=== PATIENT | male | born 1950 | race Caucasian/White ===

== ENCOUNTER → 2016-07-26 | Outpatient (CLI) | payer OTHER ==
[~2016-07-26] MED LIST: ASPI81TA28 PO; CLOP1TAB15 PO; METO25TA56 PO; MULTTAB45 PO; NITR0.4S UT; ROSU20TA PO
[2016-07-26 12:28] LABS: BASO % 0.5 %; BASO ABS # 0.04 K/uL (0-0.2); COMPLETE YES; EOS % 1.6 %; HEMATOCRIT 41.5 % (42-52); IG% 0.4 %; LYMPH % 35.6 %; LYMPH ABS # 2.67 K/uL (1.2-3.4); MEAN CELL VOLUME 85.7 fL (80-100); MEAN CORPUSCULAR HGB CONC 34.9 g/dl (32-36); MEAN PLATELET VOLUME 10.2 fL (7.4-10.4); MONO % 9.2 %; NEUT % 52.7 %; PLATELET COUNT 262 K/uL (130-400); RED BLOOD COUNT 4.84 M/uL (4.7-6.1); WHITE BLOOD COUNT 7.51 K/uL (4.8-10.8)
[2016-07-26 12:48] LABS: PROTHROMBIN TIME (PATIENT) 10.5 SECONDS (9.0-12.0)
[2016-07-26 12:53] LABS: BLOOD UREA NITROGEN 11 mg/dl (7-18); BUN/CREATININE RATIO 10.2 (10-20); CALCIUM 8.9 mg/dl (8.5-10.1); CARBON DIOXIDE 26 mmol/L (21-32); CHLORIDE 110 mmol/L (98-107); GLUCOSE 90 mg/dl (70-99); POTASSIUM 3.9 mmol/L (3.5-5.1); SODIUM 144 mmol/L (136-145)
== END | disposition home or self-care (01) ==
LOC: C.LABPBG 10:44
PROVIDERS: ATTEND Internal Medicine Cardiovascular Disease
DX: R06.02 Shortness of breath (principal); R07.9 Chest pain, unspecified

== ENCOUNTER → 2016-07-29 | Outpatient (CLI) | payer OTHER ==
--- NOTE | 2016-07-29 15:42 | DIAGNOSTIC IMAGING REPORT ---
CHEST 2 VIEWS ROUTINE CLINICAL HISTORY: CHEST PAIN dyspnea COMPARISON STUDY: No previous studies for comparison. FINDINGS: The bones soft tissues and hemidiaphragms are normal. The cardiomediastinal silhouette is normal. The lungs are clear. The pulmonary vasculature is normal. IMPRESSION: Negative chest. Electronically signed by: Ant Akers M.D. 07/29/2016 3:40 PM Dictated Date/Time: 07/29/2016 3:39 PM
== END | disposition home or self-care (01) ==
LOC: C.RADBC 15:14
PROVIDERS: ATTEND Internal Medicine Cardiovascular Disease
DX: R06.02 Shortness of breath (principal); R07.9 Chest pain, unspecified

== ENCOUNTER → 2017-01-09 | Outpatient (CLI) | payer OTHER ==
[2017-01-09 12:50] LABS: HEMATOCRIT 46.3 % (42-52); MEAN CORPUSCULAR HEMOGLOBIN 29.2 pg (25-34); MEAN CORPUSCULAR HGB CONC 32.8 g/dl (32-36); MEAN PLATELET VOLUME 10.8 fL (7.4-10.4); PLATELET COUNT 243 K/uL (130-400); WHITE BLOOD COUNT 7.94 K/uL (4.8-10.8)
[2017-01-09 13:22] LABS: ESTIMATED AVERAGE GLUCOSE 126 mg/dl; HA1C FLAG Normal (Normal)
[2017-01-09 13:32] LABS: ALT/SGPT 40 U/L (12-78); AST/SGOT 30 U/L (15-37); BLOOD UREA NITROGEN 15 mg/dl (7-18); BUN/CREATININE RATIO 13.4 (10-20); CALCIUM 9.1 mg/dl (8.5-10.1); CARBON DIOXIDE 27 mmol/L (21-32); CHLORIDE 111 mmol/L (98-107); CHOLESTEROL 141 mg/dl (0-200); GLUCOSE 107 mg/dl (70-99); POTASSIUM 4.2 mmol/L (3.5-5.1); SODIUM 143 mmol/L (136-145)
[2017-01-09 13:37] LABS: ALB/GLOB RATIO 1.1 (0.9-2); ALKALINE PHOSPHATASE 74 U/L (45-117); CHOLESTEROL/HDL RATIO 3.6; HDL CHOLESTEROL 39 mg/dl; LDL CHOLESTEROL CALCULATED 66 mg/dl; TRIGLYCERIDES 179 mg/dl (0-150); VERY LOW DENSITY LIPOPROT CALC 36 mg/dl
== END | disposition home or self-care (01) ==
LOC: C.LABPBG 08:03
PROVIDERS: ATTEND Family Medicine
DX: I10 Essential (primary) hypertension (principal); I25.10 Atherosclerotic heart disease of native coronary artery without angina pectoris; E78.5 Hyperlipidemia, unspecified; R73.03 Prediabetes

== ENCOUNTER → 2017-03-17 | Outpatient (CLI) | payer OTHER ==
[2017-03-17 13:01] LABS: ALT/SGPT 32 U/L (12-78); AST/SGOT 18 U/L (15-37); BLOOD UREA NITROGEN 14 mg/dl (7-18); BUN/CREATININE RATIO 13.4 (10-20); CALCIUM 8.8 mg/dl (8.5-10.1); CARBON DIOXIDE 27 mmol/L (21-32); CHLORIDE 111 mmol/L (98-107); CREATININE 1.08 mg/dl (0.60-1.40); GLUCOSE,FASTING 117 mg/dl (70-99); POTASSIUM 4.2 mmol/L (3.5-5.1); SODIUM 144 mmol/L (136-145)
[2017-03-17 13:05] LABS: ALB/GLOB RATIO 1.1 (0.9-2); ALKALINE PHOSPHATASE 85 U/L (45-117); CHOLESTEROL 165 mg/dl (0-200); CHOLESTEROL/HDL RATIO 3.8; HDL CHOLESTEROL 44 mg/dl; LDL CHOLESTEROL CALCULATED 83 mg/dl; TRIGLYCERIDES 189 mg/dl (0-150); VERY LOW DENSITY LIPOPROT CALC 38 mg/dl
== END | disposition home or self-care (01) ==
LOC: C.LABPBG 07:56
PROVIDERS: ATTEND Internal Medicine Cardiovascular Disease
DX: I25.119 Atherosclerotic heart disease of native coronary artery with unspecified angina pectoris (principal); E78.5 Hyperlipidemia, unspecified; I11.9 Hypertensive heart disease without heart failure

== ENCOUNTER → 2017-04-14 | Day surgery (SDC) | payer OTHER ==
[2017-04-11 08:08] VITALS: Ht 152.4 cm; Wt 80.5 kg
[~2017-04-14] VITALS: Ht 152.4 cm; Wt 80.5 kg
[~2017-04-14] MED LIST changes: +500ML BSSPLUS 0.5ML EPI1:1000 IRRIG ONE; +ACETAMINOPHEN 325 MG TAB PO PRN; +ATROPINE SULFATE 0.1 MG/ML 5ML SYR IV PRN; +ATROPINE SULFATE 1% OP SOLN 2 ML BTL ONE; +BSS FLUSH ONE; +BUPIVACAINE HCL 0.75% 10 ML AMP/VIAL ONE; +CEFAZOLIN SOD 1 GM VIAL ONE; +DEXAMETHASONE SOD INJ 4 MG/ML VIAL ONE; +EpHEDrine SULFATE INJ 50 MG/ML AMP IV PRN; +EpINEphrine INJ 1MG/ML AMP 1 MG/ML AMP ONE; +FENTANYL CITRATE INJ 50 MCG/1 ML 2 ML VIAL ONE; +HYALURONIDASE HUMAN 150 UNIT/ML INJ ONE; +INDOCYANINE GREEN 25 MG/10 ML ONE; +LACTATED RINGER'S 1000ML 500 ML IV SCH; +LIDOCAINE HCL 2% 2 ML VIAL (20MG/ML) ONE; +LOSA1TAB PO; +MIDAZOLAM HCL 1 MG/ML 2ML VIAL ONE; +NEOMYC/POLYMYX/BACITR/HC OP OI 3.5 GM TUBE OPL ONE; +OCUCOAT 1 ML SOLN IO ONE; +ONDANSETRON INJ 2 MG/ML 2 ML VIAL ONE; +POVIDONE-IODINE OP SOLN (SURGERY CNTR CHARGING ONLY) ONE; +PROPARACAINE 0.5% OP SOLN PER DROP CHARGE OPL SCH; +PROPOFOL IV EMULSION 10 MG/ML 20 ML VIAL IV ONE; +TIMOLOL MALEATE 0.5% OP SOLN PER DROP CHARGE OPL ONE; +TRIAMCINOLONE ACETONIDE OPHTH 40 MG/ML VIAL STERILE IO ONE; +VANCOMYCIN HCL 1000MG/20ML VIAL ONE
--- NOTE | 2017-04-14 07:55 | History and Physical: Surg Cnt ---
History & Physical Date Apr 14, 2017. Chief Complaint macular hole left eye History of Present Illness The patient is a 67 year old male with complaints of Past Medical/Surgical History Medical Problems: (1) Kidney stone Surgical Problems: (1) H/O heart artery stent Additional History Hepatic Disease: No Endocrine Disorder: No Kidney Disease: No Hypertension: Yes Heart Disease: Yes Bleeding Tendencies: Yes Infectious Diseases: No Allergies Coded Allergies: No Known Drug Allergy (Verified Allergy, Unknown, NKDA, 04/14/17) Home Medications Scheduled Aspirin (Aspirin Ec), 81 MG PO QAM Clopidogrel (Plavix), 75 MG PO QAM Losartan Potassium (Cozaar), 25 MG PO QAM Metoprolol Tartrate (Lopressor) (Lopressor), 0.05 TAB PO QAM Multiple Vitamin (Multiple Vitamin), 1 TAB PO QAM Nitroglycerin (Nitrostat), 0.4 MG UT PRN Rosuvastatin Calcium (Crestor), 1 TAB PO QAM Physical Examination Skin: warm/dry Head: normocephalic Respiratory/Chest: lungs clear Cardiovascular: regular rate, rhythm Plan of Treatment vitrectomy left eye
[2017-04-14] MEDS: PHENYLEPHRINE HCL 2.5% OP SOLN PER DROP CHARGE OPL SCH ×2 (08:25→08:30)
[2017-04-14] MEDS: TROPICAMIDE 1% OP SOLN PER DROP CHARGE OPL SCH ×2 (08:25→08:30)
--- NOTE | 2017-04-14 09:25 | [facility] Operative Report ---
Operative Report Date of Service Apr 14, 2017. Operative Report PREOPERATIVE DIAGNOSIS: Macular hole, left eye. ICD10 CODE: H35.342 POSTOPERATIVE DIAGNOSIS: same. PROCEDURE: 1. Pars plana vitrectomy, 23 gauge. 2. Membrane peeling of the internal limiting membrane. 3. Fluid-air exchange. 4. Air-gas exchange w/ SF6 20 %. All to the left eye. CPT CODE: 56063 SURGEON: Steven Altamirano D.O. COMPLICATIONS: None. ESTIMATED BLOOD LOSS: None. SPECIMENS: None. ANESTHESIA: Retrobulbar block and MAC. INDICATIONS FOR PROCEDURE: The patient has a macular hole that is visually significant. Vitrectomy surgery is indicated to decrease risk of vision loss and potentially improve vision. CONSENT: The risks, benefits and alternatives were discussed with the patient including but not limited to decreased visual acuity, failure to achieve desired results, loss of the eye, infection, pain, glaucoma, lens changes, retinal tears, retinal detachment, the need for more procedures, drooping of the eyelid, blindness, and double vision. The patient is aware of risks and consents to the surgery. Consent is signed and on the chart. OPERATION AND FINDINGS: The patient was brought to the operating room where the patient was identified by name, date, and medical record number. The surgical site was confirmed with the informed written consent. The patient was sedated by the anesthesiology team after which a 50:50 mixture of 2% lidocaine and 0.75% bupivacaine with hyaluronidase was administered in a standard retrobulbar fashion. A total of 4 ml was administered without difficulty. The patient was then prepped and draped in the usual sterile manner for retinal surgery. A wire lid speculum was placed and an Miguelito 23-gauge trocar cannula system was employed. The inferior temporal trocar cannula was first placed in an angled fashion 3.75mm posterior to the surgical limbus and the infusion cannula was inserted into this cannula after which the intravitreal position was verified prior to turning the infusion on. Two more trocar cannulas were then inserted in an angled fashion, one in the superior temporal, and one in the superior nasal quadrant both 3.75mm posterior to the surgical limbus. A light pipe and vitrector were then introduced into the eye and the BIOM wide angle viewing system was brought into place. Standard core vitrectomy was performed and the vitreous was insured to be totally detached from the posterior pole with the aid of the vitrector. Next 0.05ml of indocyanine green was placed over the macular surface to stain the internal limiting membrane. This was washed from the eye after 10 seconds. At this point a flat contact lens was placed on the surface of the eye and a flex scraper and ILM forceps were then used to gently peel the internal limiting membrane surrounding the macular hole without difficulty. At this point scleral depression was performed for 360 degrees and no retinal tears or detachments were noted. A soft tip cannula was used to perform a fluid- air exchange. Next, SF6 20% was injected in through the infusion cannula for a complete gas fill of the eye. The trocar cannulas were then removed and found to be air tight. The intraocular pressure was found to be within normal limits by palpation and subconjunctival injections of Kefzol and dexamethasone were administered inferiorly and superiorly. The wire lid speculum was removed. Maxitrol and timolol were applied to the surface of the eye. A light patch and shield were taped over the surface of the eye and the patient left the Operating Room in stable condition having tolerated the procedure well. DISPOSITION: A gas bracelet was placed on the patients wrist. The patient was instructed to maintain a face down position overnight. The patient is to call immediately if there are any problems overnight. I attest to the content of the Intraoperative Record and any orders documented therein. Any exceptions are noted below.
--- NOTE | 2017-04-14 09:27 | Discharge Instructions-SurgCtr ---
Discharge Instructions Date of Service Apr 14, 2017. Visit Reason for Visit: Left Eye Macular Hole Discharge Discharge Diagnosis / Problem: same Discharge Goals Goal(s): Improve function Activity Recommendations Activity Limitations: per Instructions/Follow-up section Anesthesia . Post Anesthesia Instructions: If you have had General Anesthesia or IV Sedation: * Do not drive today. * Resume driving when surgeon permits. * Do not make important decisions or sign legal documents today. * Call surgeon for: 1. Temperature elevations greater than 101 degrees F. 2. Uncontrollable pain. 3. Excessive bleeding. 4. Persistent nausea and vomiting. 5. Medication intolerance (nausea, vomiting or rash). * For nausea and vomiting use only clear liquids such as: tea, soda, bouillon until nausea subsides, then gradually increase diet as tolerated. * If you have any concerns or questions, call your surgeon's office. If physician is unavailable and it is an emergency, call 911 or go to the nearest emergency room. . Instructions / Follow-Up Instructions / Follow-Up * May take Tylenol if needed for discomfort. * Do NOT lay flat on back and position head as follows: face foward/chin down as much as possible. Sleep on right side. * Do NOT remove green bracelet until instructed to do so by your surgeon and follow these precautions: * No air travel * No travel above 2500 feet * No nitrous oxide (N2O). * Do NOT remove eye shield. * NO straining, heavy lifting (>15 pounds) or bending below waist. * Avoid getting water or soap directly into operative eye. * Do NOT rub eye. If you experience increasing eye pain not relieved by medication, please contact us immediately at [phone]. If you are unable to reach someone at the above number, call [phone] and ask to speak with the EYE DOCTOR PICKER TENDER HELPER. Inform them that you are a Dr. Altamirano patient who had recent surgery. Diet Recommendations Home Diet: resume previous diet Procedures Procedures Performed: Left Eye 23 Gauge Vitrectomy, Membrane Peeling, Installation of SF6 Gas Pending Studies Studies pending at discharge: no Medical Emergencies . Who to Call and When: Medical Emergencies: If at any time you feel your situation is an emergency, please call 911 immediately. . Non-Emergent Contact Non-Emergency issues call your: Clinical Services Assistant . . "Provider Documentation" section prepared by Steven Altamirano. .
--- NOTE | 2017-04-14 10:05 | Anesthesia Progress Nt - [facility] ---
Anesthesia Post Op Note Date & Time Apr 14, 2017 at 10:05 Vital Signs Pain Intensity: 0 Vital Signs Past 12 Hours Date Time Temp Pulse Resp B/P (MAP) Pulse Ox O2 Delivery O2 Flow Rate FiO2 04/14/17 09:45 36.7 67 16 109/76 (87) 94 Room Air 04/14/17 06:55 36.8 67 18 129/87 (101) 93 Room Air Notes Mental Status: alert / awake / arousable, participated in evaluation Pt Amnestic to Procedure: Yes Nausea / Vomiting: adequately controlled Pain: adequately controlled Airway Patency, RR, SpO2: stable & adequate BP & HR: stable & adequate Hydration State: stable & adequate Anesthetic Complications: no major complications apparent
[2017-04-14 10:07] VITALS: BP 111/75; PULSE 57; TEMP 36.6; O2SAT 95
== END | disposition home or self-care (01) ==
LOC: X.SURG 06:45
PROVIDERS: ATTEND Ophthalmology
DX: H35.342 Macular cyst, hole, or pseudohole, left eye (principal); I10 Essential (primary) hypertension; I25.10 Atherosclerotic heart disease of native coronary artery without angina pectoris

== ENCOUNTER → 2017-07-09 | Outpatient (CLI) | payer OTHER ==
[~2017-07-09] MED LIST changes: -500ML BSSPLUS 0.5ML EPI1:1000 IRRIG ONE; -ACETAMINOPHEN 325 MG TAB PO PRN; -ATROPINE SULFATE 0.1 MG/ML 5ML SYR IV PRN; -ATROPINE SULFATE 1% OP SOLN 2 ML BTL ONE; -BSS FLUSH ONE; -BUPIVACAINE HCL 0.75% 10 ML AMP/VIAL ONE; -CEFAZOLIN SOD 1 GM VIAL ONE; -DEXAMETHASONE SOD INJ 4 MG/ML VIAL ONE; -EpHEDrine SULFATE INJ 50 MG/ML AMP IV PRN; -EpINEphrine INJ 1MG/ML AMP 1 MG/ML AMP ONE; -FENTANYL CITRATE INJ 50 MCG/1 ML 2 ML VIAL ONE; -HYALURONIDASE HUMAN 150 UNIT/ML INJ ONE; -INDOCYANINE GREEN 25 MG/10 ML ONE; -LACTATED RINGER'S 1000ML 500 ML IV SCH; -LIDOCAINE HCL 2% 2 ML VIAL (20MG/ML) ONE; -MIDAZOLAM HCL 1 MG/ML 2ML VIAL ONE; -NEOMYC/POLYMYX/BACITR/HC OP OI 3.5 GM TUBE OPL ONE; -OCUCOAT 1 ML SOLN IO ONE; -ONDANSETRON INJ 2 MG/ML 2 ML VIAL ONE; -POVIDONE-IODINE OP SOLN (SURGERY CNTR CHARGING ONLY) ONE; -PROPARACAINE 0.5% OP SOLN PER DROP CHARGE OPL SCH; -PROPOFOL IV EMULSION 10 MG/ML 20 ML VIAL IV ONE; -TIMOLOL MALEATE 0.5% OP SOLN PER DROP CHARGE OPL ONE; -TRIAMCINOLONE ACETONIDE OPHTH 40 MG/ML VIAL STERILE IO ONE; -VANCOMYCIN HCL 1000MG/20ML VIAL ONE
[2017-07-09 12:39] LABS: BASO % 0.4 %; BASO ABS # 0.03 K/uL (0-0.2); EOS % 1.5 %; EOS ABS # 0.12 K/uL (0-0.5); HEMATOCRIT 44.6 % (42-52); HEMOGLOBIN 15.4 g/dL (14.0-18.0); IG# 0.03 K/uL (0.00-0.02); LYMPH % 27.5 %; LYMPH ABS # 2.25 K/uL (1.2-3.4); MEAN CELL VOLUME 89.4 fL (80-100); MEAN CORPUSCULAR HEMOGLOBIN 30.9 pg (25-34); MEAN CORPUSCULAR HGB CONC 34.5 g/dl (32-36); MEAN PLATELET VOLUME 11.1 fL (7.4-10.4); MONO % 8.6 %; NEUT % 61.6 %; NEUT ABS # 5.04 K/uL (1.4-6.5); PLATELET COUNT 239 K/uL (130-400); RED CELL DISTRIBUTION WIDTH CV 13.2 % (11.5-14.5); RED CELL DISTRIBUTION WIDTH SD 42.9 fL (36.4-46.3); WHITE BLOOD COUNT 8.17 K/uL (4.8-10.8)
[2017-07-09 13:03] LABS: HEMOGLOBIN A1C 6.2 % (4.5-5.6)
[2017-07-09 13:21] LABS: BLOOD UREA NITROGEN 16 mg/dl (7-18); CALCIUM 9.2 mg/dl (8.5-10.1); CARBON DIOXIDE 26 mmol/L (21-32); CHOLESTEROL 183 mg/dl (0-200); CREATININE 1.06 mg/dl (0.60-1.40); GLUCOSE 112 mg/dl (70-99); POTASSIUM 4.1 mmol/L (3.5-5.1); SODIUM 142 mmol/L (136-145)
[2017-07-09 13:24] LABS: LDL CHOLESTEROL CALCULATED 96 mg/dl
== END | disposition home or self-care (01) ==
LOC: C.LABPBG 07:38
PROVIDERS: ATTEND Family Medicine
DX: R73.03 Prediabetes (principal); E78.5 Hyperlipidemia, unspecified; I25.10 Atherosclerotic heart disease of native coronary artery without angina pectoris

== ENCOUNTER → 2017-12-29 | Outpatient (CLI) | payer OTHER ==
--- NOTE | 2017-12-29 16:44 | DIAGNOSTIC IMAGING REPORT ---
CHEST 2 VIEWS ROUTINE CLINICAL HISTORY: OTHER CHEST PAIN dyspnea COMPARISON STUDY: 07/29/2016 FINDINGS: Increased parenchymal markings medial aspect left base. Suboptimal visibility left hemidiaphragm. Lungs otherwise appear clear. Right hemidiaphragm is smooth. IMPRESSION: Infiltrate left base. The above report was generated using voice recognition software. It may contain grammatical, syntax or spelling errors. Electronically signed by: Ant Akers M.D. 12/29/2017 4:43 PM Dictated Date/Time: 12/29/2017 4:42 PM
== END | disposition home or self-care (01) ==
LOC: C.RAD 16:18
PROVIDERS: ATTEND Internal Medicine Cardiovascular Disease
DX: R91.8 Other nonspecific abnormal finding of lung field (principal); R07.89 Other chest pain; I25.118 Atherosclerotic heart disease of native coronary artery with other forms of angina pectoris; R94.39 Abnormal result of other cardiovascular function study; I11.9 Hypertensive heart disease without heart failure; E78.5 Hyperlipidemia, unspecified

== ENCOUNTER → 2017-12-29 | Outpatient (CLI) | payer OTHER ==
[2017-12-29 12:52] LABS: BASO % 0.4 %; BASO ABS # 0.03 K/uL (0-0.2); EOS % 1.7 %; EOS ABS # 0.14 K/uL (0-0.5); HEMOGLOBIN 15.4 g/dL (14.0-18.0); IG# 0.03 K/uL (0.00-0.02); LYMPH % 30.7 %; LYMPH ABS # 2.52 K/uL (1.2-3.4); MEAN CORPUSCULAR HEMOGLOBIN 30.1 pg (25-34); MEAN CORPUSCULAR HGB CONC 33.5 g/dl (32-36); MONO ABS # 0.66 K/uL (0.11-0.59); NEUT % 58.8 %; NEUT ABS # 4.83 K/uL (1.4-6.5); PLATELET COUNT 249 K/uL (130-400); RED CELL DISTRIBUTION WIDTH SD 42.3 fL (36.4-46.3); WHITE BLOOD COUNT 8.21 K/uL (4.8-10.8)
[2017-12-29 13:00] LABS: HEMOGLOBIN A1C 6.3 % (4.5-5.6)
[2017-12-29 13:02] LABS: PTT PATIENT 25.3 SECONDS (21.0-31.0)
[2017-12-29 13:43] LABS: ALBUMIN 4.1 gm/dl (3.4-5.0); ALKALINE PHOSPHATASE 78 U/L (45-117); ALT/SGPT 41 U/L (12-78); AST/SGOT 25 U/L (15-37); BLOOD UREA NITROGEN 21 mg/dl (7-18); CALCIUM 9.2 mg/dl (8.5-10.1); CARBON DIOXIDE 25 mmol/L (21-32); CHOLESTEROL 168 mg/dl (0-200); CREATININE 1.13 mg/dl (0.60-1.40); GLUCOSE 129 mg/dl (70-99); LDL CHOLESTEROL CALCULATED 82 mg/dl; POTASSIUM 4.1 mmol/L (3.5-5.1); SODIUM 141 mmol/L (136-145); TOTAL PROTEIN 7.6 gm/dl (6.4-8.2)
== END | disposition home or self-care (01) ==
LOC: C.LABPBG 08:20
PROVIDERS: ATTEND Internal Medicine Cardiovascular Disease
DX: R07.89 Other chest pain (principal); I25.118 Atherosclerotic heart disease of native coronary artery with other forms of angina pectoris; I11.9 Hypertensive heart disease without heart failure; R94.39 Abnormal result of other cardiovascular function study; E78.5 Hyperlipidemia, unspecified; R73.03 Prediabetes